=== PATIENT | male | born 1970 | race Two or more races ===

== ENCOUNTER 2021-11-08 10:08 | Emergency (ER) | payer OTHER ==
[~2021-11-08] VITALS: Ht 180.3 cm; Wt 82.1 kg
[2021-11-08] MEDS ORDERED: JANUMET 50-1,01 EACH PO (10:17)
[2021-11-08] MEDS ORDERED: VAZALORE81 MG (10:17)
[2021-11-08] MEDS ORDERED: GLIMEPIRIDE2 MG (10:17)
[2021-11-08] MEDS ORDERED: LAMICTAL150 MG PO (10:18)
[2021-11-08] MEDS ORDERED: VASOTEC2.5 MG PO (10:18)
[2021-11-08] MEDS ORDERED: OMEGA-31000 MG PO (10:18)
== END 2021-11-08 12:57 ==
LOC: ER 10:08
DX: S92.354A Nondisplaced fracture of fifth metatarsal bone, right foot, initial encounter for closed fracture (principal)